=== PATIENT | female | born 1960 ===

== ENCOUNTER 2023-03-08 11:39 | Outpatient (CLI) | payer BC, OTHER | END 2023-03-08 11:40 | disposition home or self-care (01) | LOC: BICMAMMO 11:39 | PROVIDERS: ATTEND Nurse Practitioner Family | DX: Z12.31 Encounter for screening mammogram for malignant neoplasm of breast (principal); Z98.890 Other specified postprocedural states | CPT/HCPCS: 77063; 77067 ==